=== PATIENT | female | born 1990 | race African-American/Black ===

== ENCOUNTER 2016-11-17 11:57 | Emergency (ER) | payer MEDICAID ==
[~2016-11-17] VITALS: Ht 165.1 cm; Wt 80.0 kg
[2016-11-17] MEDS ORDERED: SODIUM CHLORIDE 0.9% 1,000 ML IV ONE (12:36)
[2016-11-17 13:34] LABS: PROTHROMBIN TIME 10.6 sec (9.4-11.6)
[2016-11-17 13:35] LABS: BASOPHILS % 0.3 % (0.0-2.0); EOSINOPHILS % 5.7 % (0.0-5.0); HEMATOCRIT. 32.7 % (36.0-48.0); HEMOGLOBIN. 10.6 g/dL (12.0-16.0); LYMPHOCYTES % 20.1 % (20.0-50.0); MEAN CORPUSCULAR HEMOGLOBIN 22.5 pg (28.0-32.0); MEAN CORPUSCULAR VOLUME 69.3 fL (81.0-99.0); MONOCYTES % 5.2 % (2.0-8.0); NEUTROPHILS % 68.7 % (40.0-76.0); PLATELET 247 x1000/uL (130-400); RED BLOOD CELL COUNT 4.72 mill/uL (4.2-5.4); RED CELL DISTRIBUTION WIDTH 18.3 % (11.6-14.6)
[2016-11-17 13:38] LABS: HCG SCREEN NEGATIVE
[2016-11-17 13:41] LABS: CARBON DIOXIDE 28 mEq/L (21-32); CHLORIDE 109 mEq/L (98-107)
[2016-11-17 13:59] LABS: PLATELET ESTIMATE NORMAL
[2016-11-17 14:10] VITALS: BP 105/64
== END 2016-11-17 14:44 | disposition home or self-care (01) ==
LOC: ER 12:32
DX: R55 Syncope and collapse (principal)
CPT/HCPCS: 36415; 80053; 81025; 84703; 85025; 85610; 99284; J7030; Z7610